=== PATIENT | female | born 1960 | race Caucasian/White ===

== ENCOUNTER 2018-04-19 12:48 | Emergency (ER) | payer BC ==
[2018-04-19 13:54] VITALS: BP 107/54
--- NOTE | 2018-04-19 14:50 | UC ---
Complaint Female HPI - HPI Summary HPI Summary: 57 yo with dysuria. She is currently taking pyridium OTC. symptoms started yesterday with a low pain in her abd. frequent urination all night, and now pain in her low back. Color of urine is red. Denies fever, chills or flank pain. States she had sexual intercourse 2 days before symptom onset - History Of Current Complaint Chief Complaint: UCGU Stated Complaint: PAIN W/ URINATION, BLEEDING Time Seen by Provider: 04/19/18 14:40 Hx Last Menstrual Period: 03/22/18 ?: No Onset/Duration: Sudden Onset, Lasting Days Timing: Intermittent Severity Initially: Mild Severity Currently: Severe Pain Intensity: 7 Character: Dull, Burning Aggravating Factor(s): Urination Alleviating Factor(s): Nothing Associated Signs And Symptoms: Positive: Negative - Risk Factors Ectopic Risk Factor: Negative Ovarian Torsion Risk Factor: Negative - Allergies/Home Medications Allergies/Adverse Reactions: Allergies Allergy/AdvReac Type Severity Reaction Status Date / Time soy Allergy GI Upset Verified 04/19/18 13:55 Home Medications: Home Medications Phenazopyridine HCl [Urinary Pain Relief] 95 mg PO DAILY 04/19/18 [History Confirmed 04/19/18] PMH/Surg Hx/FS Hx/Imm Hx Previously Healthy: Yes - Surgical History Surgical History: None - Family History Known Family History: Positive: Seizure Disorder - Social History Alcohol Use: Occasionally Substance Use Type: None Smoking Status (MU): Former Smoker Review of Systems Constitutional: Negative Genitourinary: Dysuria, Frequency All Other Systems Reviewed And Are Negative: Yes Physical Exam Triage Information Reviewed: Yes Appearance: Well-Appearing, No Pain Distress, Well-Nourished Vital Signs: Initial Vital Signs Temp 98.5 F 04/19/18 13:43 Pulse 94 04/19/18 13:43 Resp 18 04/19/18 13:43 BP 107/54 04/19/18 13:43 Pulse Ox 100 04/19/18 13:43 Vital Signs Reviewed: Yes Eyes: Positive: Conjunctiva Clear ENT: Positive: Hearing grossly normal Neck: Positive: Supple, Nontender, No Lymphadenopathy Respiratory: Positive: Chest non-tender, Lungs clear, Normal breath sounds Cardiovascular: Positive: RRR, No Murmur, Pulses Normal, Brisk Capillary Refill Abdomen Description: Positive: Nontender, No Organomegaly, Soft Bowel Sounds: Positive: Present Musculoskeletal: Positive: Strength Intact, ROM Intact, No Edema Neurological: Positive: Alert, Muscle Tone Normal Psychological: Positive: Age Appropriate Behavior Skin Exam: Normal Complaint Female Dx - Course Course Of Treatment: patient with positive urine analysis and symptoms compatible with UTI, start on macrobid as prescribed and plenty of fluids, continue symptomatic treatment with pyridium. F/u with PCP in 1-2 weeks. - Differential Dx/Diagnosis Differential Diagnosis/HQI/PQRI: Pelvic Inflammatory Disease Provider Diagnoses: UTI Discharge - Sign-Out/Discharge Documenting (check all that apply): Patient Departure All imaging exams completed and their final reports reviewed: No Studies - Discharge Plan Condition: Stable Disposition: HOME Patient Education Materials: Urinary Tract Infection in Women (ED), Nitrofurantoin Macrocrystals (By mouth) Referrals: No Primary Care Phys,NOPCP [Primary Care Provider] - - Billing Disposition and Condition Condition: STABLE Disposition: Home
--- NOTE | 2018-04-23 10:04 | UC ---
- Progress Note Progress Note: PLS CALL PT. URINE CULTURE GROWING E. COLI WITH INTERMEDIATE SENSITIVITY TO MACROBID. STOP MACROBID. BACTRIM DS BID X 5 DAYS SENT TO [facility]. - EBEN NI MD. Discharge - Sign-Out/Discharge Documenting (check all that apply): Post-Discharge Follow Up All imaging exams completed and their final reports reviewed: No Studies - Discharge Plan Condition: Stable Disposition: HOME Prescriptions: Sulfamethox/Trimethoprim DS* [Bactrim DS 800/160 TAB*] 1 tab PO BID #10 tab Patient Education Materials: Nitrofurantoin Macrocrystals (By mouth), Urinary Tract Infection in Women (ED) Referrals: No Primary Care Phys,NOPCP [Primary Care Provider] - - Billing Disposition and Condition Condition: STABLE Disposition: Home
== END 2018-04-19 15:00 | disposition home or self-care (01) ==
LOC: UCEAST 12:48
DX: N39.0 Urinary tract infection, site not specified (principal); Z87.891 Personal history of nicotine dependence
CPT/HCPCS: 36415; 81003; 86703; 87077; 87086; 87186; 99212; G0463

== ENCOUNTER 2018-11-28 14:30 | Emergency (ER) | payer BC ==
[2018-11-28 14:46] VITALS: BP 111/60
--- NOTE | 2018-11-28 15:12 | UC ---
- HPI Summary HPI Summary: This is a 58-year-old female who has left breast pain over the past couple of days with no known injury. She did have breast augmentation done 10 years ago in [facility]. She does not have a primary care provider in this area. She denies any fever or chills no nausea vomiting or diarrhea. - History of Current Complaint Hx Obtained From: Patient Breast Chief Complaint: Pain, Left Onset/Duration: Started Days Ago - Pain started a couple days ago. Timing: Constant Breast Pain Aggravating Factors: Pressure Breast Pain Alleviating Factors: Support Breast Associated Signs/Symptoms: Negative - Allergy/Home Medications Allergies/Adverse Reactions: Allergies Allergy/AdvReac Type Severity Reaction Status Date / Time soy Allergy GI Upset Verified 11/28/18 14:47 Home Medications: Home Medications NK [No Home Medications Reported] 11/28/18 [History Confirmed 11/28/18] PMH/Surg Hx/FS Hx/Imm Hx Previously Healthy: Yes - Surgical History Surgical History: Yes Surgery Procedure, Year, and Place: breast implants bilateral 2008 - Family History Known Family History: Positive: Seizure Disorder - Social History Alcohol Use: Occasionally Substance Use Type: None Smoking Status (MU): Former Smoker Review of Systems All Other Systems Reviewed And Are Negative: Yes Skin: Positive: Other - Patient states tenderness left upper outer breast. She denies any pus drainage. Is Patient Immunocompromised?: No Physical Exam Triage Information Reviewed: Yes Appearance: Well-Appearing, No Pain Distress, Well-Nourished Vital Signs: Initial Vital Signs Temp 99.2 F 11/28/18 14:35 Pulse 87 11/28/18 14:35 Resp 17 11/28/18 14:35 BP 111/60 11/28/18 14:35 Pulse Ox 95 11/28/18 14:35 Vital Signs Reviewed: Yes Skin: Positive: Other - Left breast appears slightly more enlarged than the right. No erythema, bruising, deformity or swelling. No dimpling. Nothing expressed from the nipple. Tenderness on palpation left upper outer breast. Breast Pain Course/Dx - Course Course Of Treatment: 58-year-old female who is comfortable here. We do not have sonogram available to do a sonogram. The patient was given the name of Dr. Tim Vivar to follow up with on Saturday. I attempted to call his office and they are gone for the Memorial Day weekend. I advised the patient if she develops fever, chills, red area of the left breasts are more swelling and pain she is to go to an emergency room for further care. She is to call Dr. Richardson's office Saturday to make an appointment to be seen. Patient is agreeable to this plan of action. In the meantime she can take Tylenol every 4 hours and Motrin every 8 hours for pain. - Diagnoses Provider Diagnoses: Pain of left breast Discharge - Sign-Out/Discharge Documenting (check all that apply): Patient Departure All imaging exams completed and their final reports reviewed: No Studies - Discharge Plan Condition: Fair Disposition: HOME Referrals: Tim Mac MD [Medical Doctor] - No Primary Care Phys,NOPCP [Primary Care Provider] - Additional Instructions: Tylenol every 4 hours for pain and may alternate with ibuprofen 600 mg every 8 hours as needed for pain. You may try applying warm moist compresses to the sore area. Definite follow-up in an emergency room if he developed fever, chills, hot red tender area of the left breast. Follow-up with Dr. Grajead, call Saturday to make an appointment for further care. Wear a good support bra. - Billing Disposition and Condition Condition: FAIR Disposition: Home
== END 2018-11-28 15:17 | disposition home or self-care (01) ==
LOC: UCEAST 14:30
DX: N64.4 Mastodynia (principal); Z87.891 Personal history of nicotine dependence
CPT/HCPCS: 99211; G0463